=== PATIENT | female | born 1985 ===

== ENCOUNTER 2022-01-29 08:43 | Outpatient (CLI) | payer OTHER ==
[2022-01-29] MEDS ORDERED: Iopamidol 300 61% 100 ML VIAL FS ONE (15:00)
== END 2022-01-29 08:44 | disposition home or self-care (01) ==
LOC: CSHULT 08:43
PROVIDERS: ATTEND Internal Medicine Gastroenterology
DX: R10.13 Epigastric pain (principal); Z98.890 Other specified postprocedural states; R19.8 Other specified symptoms and signs involving the digestive system and abdomen; R74.8 Abnormal levels of other serum enzymes
CPT/HCPCS: 74160; Q9967